=== PATIENT | male | born 1950 | race African-American/Black ===

== ENCOUNTER 2019-03-11 14:56 | Inpatient (IN) | payer MEDICARE, MEDICAID ==
--- NOTE | 2019-03-11 15:09 | CT ---
CT Brain WO Con: 03/11/2019 12:00 AM CLINICAL HISTORY: Stroke. COMPARISON: None. FINDINGS: Hemorrhage: None. Ventricular system: Normal in size and morphology for the patient's age. Cerebral parenchyma: Microvascular ischemic disease Midline shift: None. Mass: No mass effect. Calvarium: Normal. Visualized Paranasal sinuses: Scattered mild inflammatory mucosal thickening. IMPRESSION: No hemorrhage or mass effect. Results made available, 1506 hours.
[2019-03-11 15:28] LABS: #Basophils 0.1 thou/uL (0.0-0.2); #Eosinphils 0.3 thou/uL (0.0-0.7); #Lymphocytes 1.7 thou/uL (1.20-3.40); #Monocytes 0.9 thou/uL (0.11-0.59); #Neutrophils 13.1 thou/uL (1.40-6.50); %Basophils 0.4 % (0.0-1.0); %Eosinophils 1.8 % (0.0-10.0); %Lymphocytes 10.6 % (21.0-51.0); %Monocytes 5.3 % (0.0-10.0); Hemoglobin 14.5 g/dL (14.0-18.0); Mean Corpuscular Volume 93.7 fL (78.0-98.0); Mean Platelet Volume 8.4 fL (7.4-10.4); Platelet Count 267 thou/uL (130-400); RBC Distribution Width 14.4 % (11.5-14.5); Red Blood Cell (RBC) Count 4.83 mill/uL (4.70-6.10)
[2019-03-11 15:34] LABS: PTT 23.9 SEC (22.9-36.1); Prothrombin Time 12.7 SEC (12.0-14.7)
--- NOTE | 2019-03-11 15:38 | CT ---
CTA of the head/neck with IV contrast and 3-D reformatted imaging. 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 Right: CCA:Mild calcification without significant stenosis ICA:Mild to moderate localized stenosis related to peripherally oriented calcification of the right c arotid terminus, although difficult to reliably evaluated due to its tortuous, intracranial course. MCA:No significant stenosis. KAMRAN:No significant stenosis. PIPE WRAPPING MACHINE OPERATOR:No significant stenosis. LEFT: CCA:Mild calcified and noncalcified plaque, without high-grade stenosis ICA:Mild/moderate calcification of the left carotid terminus MCA:No significant stenosis. KAMRAN:No significant stenosis. PIPE WRAPPING MACHINE OPERATOR:No significant stenosis. Vertebrobasilar System: Left Vertebral:Mild calcification without significant stenosis Right Vertebral:Mild calcification at the origin, without significant stenosis Basilar:No significant stenosis. IMPRESSION: Scattered vascular disease, without hemodynamically significant stenosis, or occlusion. Incidental note of an ovoid, 9 mm nodular density of the subpleural of the visualized right upper onhemi g, nonspecific and incompletely assessed on the basis of this exam. Consider follow-up with CT thorax for further assessment. Notification of results provided at 1532 hours. Transcribed Date/Time: 03/11/2019 3:59 PM
[2019-03-11 15:39] LABS: ALT (SGPT) 22 U/L (8-55); AST (SGOT) 22 U/L (5-34); Albumin 3.9 g/dL (3.4-4.8); Alkaline Phosphatase 92 U/L (40-110); Anion Gap 18 mmol/L (10-20); BUN (Urea Nitrogen) 17 mg/dL (8.4-25.7); Bilirubin, Total 0.4 mg/dL (0.2-1.2); CK (CPK) 78 U/L (30-200); Calc. Creatinine Clearance 0 mL/min (70-130); Calcium 9.3 mg/dL (7.8-10.44); Carbon Dioxide 23 mmol/L (23-31); Chloride 104 mmol/L (98-107); Estimated GFR-MDRD 58; Globulin 3.4 g/dL (2.4-3.5); Glucose 95 mg/dL (80-115); Potassium 5.3 mmol/L (3.5-5.1); Protein, Total 7.3 g/dL (5.8-8.1); Sodium 140 mmol/L (136-145)
[2019-03-11] MEDS ORDERED: Aspirin 325 MG TAB ONE (15:58)
[2019-03-11] MEDS ORDERED: Ondansetron ODT 4 MG TAB PO PRN (16:41)
[2019-03-11] MEDS ORDERED: Ondansetron PF 4 MG/2 ML Vial IVP PRN (16:41)
[2019-03-11] MEDS ORDERED: Acetaminophen 650 MG Suppository PR PRN (16:41)
[2019-03-11] MEDS ORDERED: Dextrose 50% Abboject 50 ML SYRINGE SLOW IVP PRN (16:41)
[2019-03-11] MEDS ORDERED: Dextrose 5% in Water 1,000 ML IV PRN (16:41)
--- NOTE | 2019-03-11 16:41 | PDOC.FPRHP ---
- History of Present Illness Chief Complaint: Slurred Speech History of Present Illness: 68 you AA male with pmh of dementia, schizophrenia copd, DMII, HTN, HLD, and CAD presents to ER after snf staff were concerned for new onset slurred speech earlier this morning. Pt has underlying dementia. Pt A&Ox2 to person and date today but patient did not recall much of his medical history. Pt was unsure why he was at the ER. States that the girls sent him over. Per ER nurses who spoke with snf staff state that pt is usually pleasantly confused and talking with the staff. They stated that today they noticed his speech was slurred so sent him over with concern of stroke. - Allergies/Adverse Reactions Allergies Allergy/AdvReac Type Severity Reaction Status Date / Time tramadol Allergy Verified 03/12/19 00:17 - Home Medications Comments: Duoneb .5mg-3mg/3ml inhalation prn Anoro Ellipta 62.5 mcg-25mcg/actuation inhalation daily Bactrim DS started 03/08/19 and continue for 7 days BID Carvedilol 12.5 mg daily Claritin 10 mg daily Plavix 75 mg daily Donepezil 10 mg daily Finasterid 5 mg daily Fluticasone Propionate Nasal spray 50mcg/actuation 1 spray each nare daily Gabapentin 800 mg TID Guaifenesin 100mg/5ml Ivega 1.5 mg daily Lantus U100 insulin 15 u once daily at night Lasix 40 mg BID Lipitor 20 mg daily Lisinopril 20 mg daily Metformin 1000 mg BID Novolog 70-30 35u once daily Novolog U100 sliding scale Protonix 20 mg daily - History PMHx: CHF, DMII, Dementia/Schizophrenia, BPH, CAD, Diverticulosis, HTN, COPD, GERD, HLD PSHx: Heart surgery, possible pacemaker, Chest abscess drained 03/08/19 FHx: Father-Gout Social: Pt reports smoking currently, smoked for 30 years 1ppd, Denies any alcohol or illicit drug use. I spoke with Daughter who is MPOA and she stated that Father had stated he did not want interventions but she stated he was Full Code. - Review of Systems ROS unobtainable: due to mental status (Pt A&Ox2. Is reported to have underlying dementia) General: denies: fever/chills, weight/appetite/sleep changes, fatigue Eyes: denies: eye pain, vision changes ENT: denies: nasal congestion, rhinorrhea Respiratory: denies: cough, congestion, shortness of breath Cardiovascular: denies: chest pain, palpitation, edema, paroxysmal nocturnal dyspnea Gastrointestinal: denies: nausea, vomiting, diarrhea, constipation, abdominal pain Genitourinary: denies: incontinence, dysuria Skin: denies: rashes, lesions Neurological: reports: weakness. denies: numbness, syncope, seizure Psychological: denies: anxiety, depression - Vital signs BP: [175/96] HR: [66] RR: [18] Tmax: [98.2] Pox: [100]% on [1L] Wt: [112kg] - Physical Exam Constitutional: NAD, well developed -Constitutional: Alert and oriented to person and date. Not oriented to place HEENT: normocephalic and atraumatic, grossly normal hearing, normal nasal mucosa , MMM Neck: supple, trachea midline, no LAD, no JVD Heart: RRR, normal S1/S2, no murmurs/rubs/gallops, pulses present, no edema Lungs: CTAB, no respiratory distress, good air movement, no rales/rhonchi, no wheezing, no retractions Abdomen: soft, non-tender, bowel sounds present, no hernias -Abdomen: Moderately distended. -Musculoskeletal: Pt is unable to lift R. arm on command. Pt needs to assist in lifting it. Strength is 4/5 in R arm. Strenght 5/5 in all other extremities. Neurological: normal sensation, DTRs 2+ -Neurological: Pt has mild left sided facial droop. Pt speech is slurred and hard to understand. Pt Right eye does not track well with lateral movements. pt has normal sensation. pt is unable to move R. arm with command. Pt unable to lift arm without assitance. Strenght decreased in Right arm. Finger to Nose test pt has mild tremor and does not accurately track. Heel to santos normal. Skin: capillary refill <2 seconds -Skin: pt has area on left chest covered and dressed. Pt recently had abscess drained 03/08 and started on abx. Psychiatric: normal mood and affect -Psychiatric: Alert and oriented x2 to person and place. Pt not able to give the most accurate history. FMR H&P: Results - Labs Result Diagrams: 03/11/19 15:18 03/11/19 15:18 Lab results: WBC 16.0 thou/uL (4.8-10.8) H 03/11/19 15:18 Hgb 14.5 g/dL (14.0-18.0) 03/11/19 15:18 Hct 45.2 % (42.0-52.0) 03/11/19 15:18 MCV 93.7 fL (78.0-98.0) 03/11/19 15:18 Plt Count 267 thou/uL (130-400) 03/11/19 15:18 Neutrophils % 82.0 % (42.0-75.0) H 03/11/19 15:18 Sodium 140 mmol/L (136-145) 03/11/19 15:18 Potassium 5.3 mmol/L (3.5-5.1) H 03/11/19 15:18 Chloride 104 mmol/L (98-107) 03/11/19 15:18 Carbon Dioxide 23 mmol/L (23-31) 03/11/19 15:18 BUN 17 mg/dL (8.4-25.7) 03/11/19 15:18 Creatinine 1.47 mg/dL (0.7-1.3) H 03/11/19 15:18 Glucose 95 mg/dL (80-115) 03/11/19 15:18 Calcium 9.3 mg/dL (7.8-10.44) 03/11/19 15:18 Total Bilirubin 0.4 mg/dL (0.2-1.2) 03/11/19 15:18 AST 22 U/L (5-34) 03/11/19 15:18 ALT 22 U/L (8-55) 03/11/19 15:18 Alkaline Phosphatase 92 U/L (40-110) 03/11/19 15:18 Creatine Kinase 78 U/L (30-200) 03/11/19 15:18 Serum Total Protein 7.3 g/dL (5.8-8.1) 03/11/19 15:18 Albumin 3.9 g/dL (3.4-4.8) 03/11/19 15:18 - EKG Interpretation EKG: LVH, No sign of acute infarct. No significant T wave abnormalities. - Radiology Interpretation CT scan - head Status: image reviewed by me, report reviewed by me (Negative) Other Status: image reviewed by me, report reviewed by me (CTA HEAd- Scattered vascular dz, w/o hemodynamically sig stenosis or occlusion. Incidental note of an ovoid, 9 mm nodular density of the subpleural of the visualized right upper lung. Nonspecific and incompletely assessed on this exam. Reccomend f/u.) FMR H&P: A/P - Problem List (1) Stroke Current Visit: Yes Status: Acute Code(s): I63.9 - CEREBRAL INFARCTION, UNSPECIFIED (2) COPD (chronic obstructive pulmonary disease) Current Visit: Yes Status: Acute (3) CHF (congestive heart failure) Current Visit: Yes Status: Acute Code(s): I50.9 - HEART FAILURE, UNSPECIFIED (4) CAD (coronary artery disease) Current Visit: Yes Status: Acute Code(s): I25.10 - ATHSCL HEART DISEASE OF [place] CORONARY ARTERY W/O ANG PCTRS (5) HTN (hypertension) Current Visit: Yes Status: Acute Code(s): I10 - ESSENTIAL (PRIMARY) HYPERTENSION (6) HLD (hyperlipidemia) Current Visit: Yes Status: Acute Code(s): E78.5 - HYPERLIPIDEMIA, UNSPECIFIED (7) ALICE (obstructive sleep apnea) Current Visit: Yes Status: Acute Code(s): G47.33 - OBSTRUCTIVE SLEEP APNEA ( ADULT) (PEDIATRIC) (8) Diverticulosis Current Visit: Yes Status: Acute Code(s): K57.90 - DVRTCLOS OF INTEST, PART UNSP, W/O PERF OR ABSCESS W/O BLEED (9) GERD (gastroesophageal reflux disease) Current Visit: Yes Status: Acute Code(s): K21.9 - GASTRO-ESOPHAGEAL REFLUX DISEASE WITHOUT ESOPHAGITIS (10) BPH (benign prostatic hyperplasia) Current Visit: Yes Status: Acute Code(s): N40.0 - BENIGN PROSTATIC HYPERPLASIA WITHOUT LOWER URINRY TRACT SYMP - Plan CVA -Pt has left side facial droop, with noted slurred speech. He also is unable to move arm upon command. Strength is decreased in R. Arm. -CT Head neg. CTA head/neck neg -Will order MRI -Consulted speech/PT/OT and will follow recs -Will consult Nerurology -Continue ASA and Plavix even though unsure what he is on plavix for at this time. Increased Statin to high dose. -Admit to stroke unit with stroke team evaluation -Allow for permissive HTN at this time for 24 hrs CHF -Pt possibly has poor ER per daughter -continued home lasix dose -Will get ECHO. -Pt possibly has pacemaker or AICD. COPD -Equivalent of pt home inhaler is Duonebs Q6hrs -Duonebs prn as needed HTN -Held home meds. Allow for permissive htn. DMII -Continued lantus 15 u PM. -Held home Novolog insulin. Mild SSI. -Accuchecks ACHS HLD -Increased dose of Atorvastatin to high dose. -FLP pending Dementia -Held home medication at this time Schizophrenia -Invega home med not on formulary. Will order to be sent in BPH -held home medication GERD -Protonix DVT Ppx -Lovenox Dispo: Admit to Stroke unit. Cont tele monitoring. MRI ordered. PT/OT/Speech consulted. Neurology consulted. Will await results and recs. Addendum - Attending - Attending Attestation Date/Time: 03/12/19 0686 I personally evaluated the patient and discussed the management with Dr. Bach at time of admission. I agree with the History, Examination, Assessment and Plan documented above with any addition or exceptions noted below. His facial droop and slurred speech were resovled at the time of my exam. Also his right sided weakness was improved to a strength of 4/5.
[2019-03-11] MEDS ORDERED: Enoxaparin Sodium 40 MG/0.4 ML SYRINGE SC SCH (16:45)
[2019-03-11] MEDS ORDERED: Nitroglycerin 2% Ointment 1 INCH/1 GM Packet ONE (17:05)
[2019-03-11] MEDS ORDERED: hydrALAZINE 20 MG/ML VIAL SLOW IVP PRN (18:06)
[2019-03-11] MEDS ORDERED: Famotidine/PF 20 mg/2ml Vial SLOW IVP SCH (21:00)
[2019-03-11] MEDS: Atorvastatin Calcium 40 MG TAB PO SCH (22:20)
[2019-03-11] MEDS: Sulfameth/Trimethoprim DS 800-160mg TAB PO SCH (22:20)
[2019-03-11] MEDS: Insulin Glargine 15 UNITS in Pre-Filled Syringe SC SCH (22:28)
[2019-03-12 05:20] LABS: #Basophils 0.1 thou/uL (0.0-0.2); #Eosinphils 0.3 thou/uL (0.0-0.7); #Lymphocytes 2.1 thou/uL (1.20-3.40); #Neutrophils 8.2 thou/uL (1.40-6.50); %Basophils 0.8 % (0.0-1.0); %Eosinophils 2.7 % (0.0-10.0); %Monocytes 8.4 % (0.0-10.0); Hemoglobin 12.8 g/dL (14.0-18.0); Mean Corpuscular HGB CONC 32.5 g/dL (32.0-36.0); Mean Corpuscular Hemoglobin 30.4 pg (27.0-31.0); Mean Corpuscular Volume 93.5 fL (78.0-98.0); Mean Platelet Volume 8.6 fL (7.4-10.4); Platelet Count 258 thou/uL (130-400); RBC Distribution Width 14.4 % (11.5-14.5); White Blood Cell (WBC) Count 11.7 thou/uL (4.8-10.8)
--- NOTE | 2019-03-12 05:34 | PDOC.FM ---
- Subjective Subjective: He has been sleeping and eating well. He says he feels anxious this morning. He complains of pain at IV site in R hand. - Objective MAR Reviewed: Yes Vital Signs & Weight: Vital Signs (12 hours) Temp Pulse Resp BP Pulse Ox 03/12/19 04:07 97.9 F 75 20 146/73 H 94 L 03/11/19 23:51 97.6 F 82 18 127/79 95 03/11/19 21:56 71 16 96 03/11/19 19:35 97.9 F 70 20 167/82 H 95 Weight Weight 109.633 kg Result Diagrams: 03/12/19 04:50 03/12/19 04:50 Phys Exam - Physical Examination Constitutional: NAD HEENT: PERRLA, moist MMs, sclera anicteric Neck: supple, full ROM Respiratory: clear to auscultation bilateral Cardiovascular: RRR, no significant murmur Gastrointestinal: soft, non-tender, positive bowel sounds Musculoskeletal: no edema, pulses present Neurological: moves all 4 limbs Deviation from normal: anxious affect Deviation from normal: Abscess of L nipple Dx/Plan (1) BPH (benign prostatic hyperplasia) Code(s): N40.0 - BENIGN PROSTATIC HYPERPLASIA WITHOUT LOWER URINRY TRACT SYMP Status: Acute (2) CHF (congestive heart failure) Code(s): I50.9 - HEART FAILURE, UNSPECIFIED Status: Acute (3) COPD (chronic obstructive pulmonary disease) Status: Acute (4) Diverticulosis Code(s): K57.90 - DVRTCLOS OF INTEST, PART UNSP, W/O PERF OR ABSCESS W/O BLEED Status: Acute (5) GERD (gastroesophageal reflux disease) Code(s): K21.9 - GASTRO-ESOPHAGEAL REFLUX DISEASE WITHOUT ESOPHAGITIS Status: Acute (6) HLD (hyperlipidemia) Code(s): E78.5 - HYPERLIPIDEMIA, UNSPECIFIED Status: Acute (7) HTN (hypertension) Code(s): I10 - ESSENTIAL (PRIMARY) HYPERTENSION Status: Acute (8) ALICE (obstructive sleep apnea) Code(s): G47.33 - OBSTRUCTIVE SLEEP APNEA (ADULT) (PEDIATRIC) Status: Acute (9) Stroke Code(s): I63.9 - CEREBRAL INFARCTION, UNSPECIFIED Status: Acute - Plan Plan: 68 you AA male with pmh of dementia, schizophrenia copd, DMII, HTN, HLD, and CAD presents to ER after long term staff were concerned for new onset slurred speech earlier this morning. 1. CVA * Pt has left side facial droop, with noted slurred speech. He also is unable to move arm upon command. Strength is decreased in R. Arm. * CT Head: Neg * CTA head/neck: Scattered vascular disease, without hemodynamically significant stenosis or occlusion * Ovoid 9mm nodular density of the sub-pleura RUL of lung. Consider f/u CT * MRI: pending * Consulted speech/PT/OT and will follow recs * Consulted Nerurology, appreciate recs. * Continue ASA and Plavix even though unsure what he is on plavix for at this time. Increased Statin to high dose. * Admit to stroke unit with stroke team evaluation * Allow for permissive HTN at this time for 24 hrs * NIH: 4 2. Abscess of L Nipple Abscess has drain in place currently * WBC: 16 on admission > 11.7 * Currently on Bactrim DS 1 tab BID * Consulted Wound Care 3. CHF Pt possibly has poor ER per daughter * Continued home lasix dose * Will get ECHO. * Pt possibly has pacemaker or AICD. 4. COPD * Equivalent of pt home inhaler is Duonebs Q6hrs * Duonebs prn as needed 5. HTN * Held home meds * Allow for permissive HTN 6. DMII * Continued lantus 15 u PM * Held home Novolog insulin. Mild SSI * Accuchecks ACHS 7. HLD * Atorvastatin 40 * FLP: pending 8. Dementia * Held home medication at this time 9. Schizophrenia * Invega home med not on formulary * Will order to be sent in 10. BPH * Held home medication 11. GERD * Started Protonix Code Status: Full Diet: HH DVT PPx: Lovenox GI PPx: Protonix PCP: CC Dispo: Stroke Inpt, will monitor on tele, get MRI, and await results and recs from Neuro, as well as PT/OT/Speech. Addendum - Attending - Attending Attestation Date/Time: 03/12/19 1023 I personally evaluated the patient and discussed the management with Dr. Townsend. I agree with the History, Examination, Assessment and Plan documented above with any addition or exceptions noted below. The patient is sitting on the side of the bed. He states he is doing well. The patient will have MRI. Will give ativan prior to imaging to help with his anxiety. Neuro is consulted. If MRI negative, may be able to discharge.
[2019-03-12 05:44] LABS: ALT (SGPT) 16 U/L (8-55); AST (SGOT) 14 U/L (5-34); Albumin 3.2 g/dL (3.4-4.8); Alkaline Phosphatase 78 U/L (40-110); Anion Gap 13 mmol/L (10-20); BUN (Urea Nitrogen) 17 mg/dL (8.4-25.7); Bilirubin, Total 0.4 mg/dL (0.2-1.2); Calc. Creatinine Clearance 88 mL/min (70-130); Calcium 8.9 mg/dL (7.8-10.44); Carbon Dioxide 27 mmol/L (23-31); Chloride 102 mmol/L (98-107); Cholesterol 108 mg/dl (< 200 Desired); Estimated GFR-MDRD 71; Globulin 3.1 g/dL (2.4-3.5); Glucose 298 mg/dL (80-115); HDL Cholesterol 27 mg/dL (>60 Neg Risk); LDL Cholesterol, Calculated 51 mg/dL; Potassium 4.2 mmol/L (3.5-5.1); Protein, Total 6.3 g/dL (5.8-8.1); Sodium 138 mmol/L (136-145); Triglycerides 148 mg/dL (Less than 150)
[2019-03-12] MEDS: HumaLOG 300 UNITS/3 ML VIAL SC PRN ×3 (06:26→17:52)
[2019-03-12] MEDS ORDERED: Pantoprazole 40 MG VIAL IVP SCH (09:00)
[2019-03-12] MEDS: Furosemide 40 MG TAB PO SCH ×2 (09:17→14:54)
[2019-03-12] MEDS: Sulfameth/Trimethoprim DS 800-160mg TAB PO SCH ×2 (09:17→22:24)
[2019-03-12] MEDS: Aspirin 81 mg Enteric Coated Tablet PO SCH (09:17)
[2019-03-12] MEDS: Enoxaparin Sodium 40 MG/0.4 ML SYRINGE SC SCH (09:18)
[2019-03-12] MEDS ORDERED: Lorazepam 2 MG/ML VIAL SLOW IVP PRN (09:18)
--- NOTE | 2019-03-12 12:14 | CON ---
DATE OF TELEMEDICINE CONSULTATION: 03/12/2019 CHIEF COMPLAINT: Dysarthria. HISTORY OF PRESENT ILLNESS: The patient gave partial history. He stated that they thought he had a stroke. The patient is a 68-year-old man with previous medical history of dementia, schizophrenia, COPD, diabetes, hypertension, hyperlipidemia , and coronary artery disease. He was brought to the hospital by the half-way staff with a history of new onset slurred speech and the patient also repeated this history and he felt he is much better and is back to normal. Per ER note, the patient is usually pleasantly confused per chart. There is no weakness noted. PREVIOUS MEDICAL HISTORY: As noted, COPD, diabetes, hypertension, hyperlipidemia, coronary artery disease. ALLERGIES: TRAMADOL. MEDICATIONS: At home noted the patient is on Plavix at the half-way. PAST SURGICAL HISTORY: The patient had a cardiac pacemaker plus cardiac surgery and chest abscess drainage in the past. FAMILY HISTORY: The patient reports he has two sets of parents, but his biological father at 60, mother in her 80s, she had strokes. Father also had gout. SOCIAL HISTORY: He smokes half pack between 11:00 a.m. to 8:00 p.m., sometimes drinks wine. Lives in a half-way. REVIEW OF SYSTEMS: Difficult to confirm due to mental status changes, but pulmonary negative for cough or shortness of breath. GI: Negative for nausea, vomiting, or diarrhea. DERMATOLOGIC: Negative for any active rash. OPHTHALMOLOGIC: Negative for vision changes. HEMATOLOGIC: Negative for any bleeding or diathesis. NEUROLOGIC: Positive for dysarthria. LABORATORY DATA: His current workup; white count 11.7, hemoglobin 12.8, hematocrit 39.2, platelet count 258. Sodium 138, potassium 4.2, chloride 102, BUN is 17, creatinine 1.23, glucose 298. Lipid profile is within normal limits. Liver functions are also within normal limits. Coagulation; PT and INR are within normal limits. PHYSICAL EXAMINATION: GENERAL APPEARANCE: Well-built, well-nourished man, who is comfortable in bed. He has mild involuntary movements of his face and no dysarthria was noted. CHEST: Clear vesicular breathing. CARDIOVASCULAR: S1, S2 heard. No murmurs. ABDOMEN: Soft. NEUROLOGIC: Higher intellectual functions; normal orientation to time, place, and person. Appropriate conversation and cranial nerves 2 through 12 normal. Pupils are 1 mm, reactive to light. Tongue midline. No atrophy noted. No facial asymmetry noted. Normal sensation of face. Normal elevation of palate bilaterally. Normal hearing to finger rub bilaterally. Motor examination, bulk normal. Tone normal. Strength 5/5 throughout in upper and lower extremities. Deep tendon reflexes 1+ in upper extremity, in the lower extremity 0+ reflexes. Cerebellar; normal [id number] and [id number] and sensory was normal to touch bilaterally. IMPRESSION: The patient with likely transient ischemic attack with dysarthria. His current examination is quite normal except for mild involuntary movements of his face and tongue. I reviewed his CAT scan results which were negative and CT angiography is negative for any kind of stenotic vessels and he is pending echocardiogram and carotid Doppler. Please complete those studies. RECOMMENDATIONS: Please add aspirin 81 mg to his treatment regimen to prevent future CVAs and I will follow up with the patient in the morning. Job ID: [id number] MTDD
[2019-03-12] MEDS ORDERED: hydrALAZINE 10 MG TAB PO PRN (21:32)
[2019-03-12] MEDS: Insulin Glargine 15 UNITS in Pre-Filled Syringe SC SCH (22:24)
[2019-03-12] MEDS: Atorvastatin Calcium 40 MG TAB PO SCH (22:24)
[2019-03-13] MEDS: HumaLOG 300 UNITS/3 ML VIAL SC PRN ×4 (01:33→18:24)
--- NOTE | 2019-03-13 06:33 | PDOC.FM ---
- Subjective Subjective: He has no complaints. He slept well last night and is eating well. - Objective MAR Reviewed: Yes Vital Signs & Weight: Vital Signs (12 hours) Temp Pulse Resp BP BP Pulse Ox 03/13/19 04:00 97.3 F L 76 16 144/77 H 95 03/12/19 23:39 72 16 95 03/12/19 23:36 97.2 F L 74 20 167/83 H 95 03/12/19 20:08 97.4 F L 76 20 191/84 H 94 L 03/12/19 18:35 69 16 94 L Weight Weight 109.089 kg Result Diagrams: 03/12/19 04:50 03/12/19 04:50 Phys Exam - Physical Examination Constitutional: NAD HEENT: PERRLA, moist MMs Neck: supple, full ROM Respiratory: clear to auscultation bilateral Cardiovascular: RRR, no significant murmur Gastrointestinal: soft, non-tender, positive bowel sounds Musculoskeletal: no edema, pulses present Neurological: moves all 4 limbs LE: 5/5 fidelia, UE: R-4/5, L-5/5 Psychiatric: normal affect, A&O x 3 Skin: no rash Dx/Plan (1) BPH (benign prostatic hyperplasia) Code(s): N40.0 - BENIGN PROSTATIC HYPERPLASIA WITHOUT LOWER URINRY TRACT SYMP Status: Acute (2) CHF (congestive heart failure) Code(s): I50.9 - HEART FAILURE, UNSPECIFIED Status: Acute (3) COPD (chronic obstructive pulmonary disease) Status: Acute (4) Diverticulosis Code(s): K57.90 - DVRTCLOS OF INTEST, PART UNSP, W/O PERF OR ABSCESS W/O BLEED Status: Acute (5) GERD (gastroesophageal reflux disease) Code(s): K21.9 - GASTRO-ESOPHAGEAL REFLUX DISEASE WITHOUT ESOPHAGITIS Status: Acute (6) HLD (hyperlipidemia) Code(s): E78.5 - HYPERLIPIDEMIA, UNSPECIFIED Status: Acute (7) HTN (hypertension) Code(s): I10 - ESSENTIAL (PRIMARY) HYPERTENSION Status: Acute (8) ALICE (obstructive sleep apnea) Code(s): G47.33 - OBSTRUCTIVE SLEEP APNEA (ADULT) (PEDIATRIC) Status: Acute (9) Stroke Code(s): I63.9 - CEREBRAL INFARCTION, UNSPECIFIED Status: Acute - Plan Plan: 68 you AA male with pmh of dementia, schizophrenia copd, DMII, HTN, HLD, and CAD presents to ER after correction staff were concerned for new onset slurred speech earlier this morning. 1. CVA * Pt has left side facial droop, with noted slurred speech. He also is unable to move arm upon command. Strength is decreased in R. Arm. * CT Head: Neg * CTA head/neck: Scattered vascular disease, without hemodynamically significant stenosis or occlusion * Ovoid 9mm nodular density of the sub-pleura RUL of lung. Consider f/u CT * MRI: pending * Consulted speech/PT/OT and will follow recs * Consulted Nerurology, appreciate recs. * Ordered Carotid Dopplers * Continue ASA and Plavix even though unsure what he is on plavix for at this time. Increased Statin to high dose. * Admit to stroke unit with stroke team evaluation * Allow for permissive HTN at this time for 24 hrs * NIH: 4 2. Abscess of L Nipple Abscess has drain in place currently * WBC: 16 on admission > 11.7 * Currently on Bactrim DS 1 tab BID * Consulted Wound Care 3. CHF Pt possibly has poor ER per daughter * Continued home lasix dose * ECHO: pending * Pt possibly has pacemaker or AICD. 4. COPD * Equivalent of pt home inhaler is Duonebs Q6hrs * Duonebs prn as needed 5. HTN * Held home meds, will restart today * Allowed for permissive HTN 6. DMII * Continued lantus 15 u PM * Held home Novolog insulin. Mild SSI * Accuchecks ACHS 7. HLD * Atorvastatin 40 * FLP: pending 8. Dementia * Held home medication at this time 9. Schizophrenia * Invega home med not on formulary * Will order to be sent in 10. BPH * Held home medication 11. GERD * Started Protonix Code Status: Full Diet: HH DVT PPx: Lovenox GI PPx: Protonix PCP: [facility] Dispo: Stroke Inpt, will monitor on tele, get MRI, ECHO, Carotid Dopplers, and await results and recs from Neuro, as well as PT/OT/Speech. Addendum - Attending - Attending Attestation Date/Time: 03/13/19 1005 I personally evaluated the patient and discussed the management with Dr. Townsend. I agree with the History, Examination, Assessment and Plan documented above with any addition or exceptions noted below. The patient's insulin is being restarted. He is scheduled for mri and carotid doppler today. Will f/u with neuro recs after imaging. Pt is doing well with therapy.
[2019-03-13] MEDS ORDERED: Lorazepam 2 MG/ML VIAL IM PRN (08:27)
[2019-03-13] MEDS ORDERED: Artificial Tear Sol 15 ML BOT EA EYE PRN (08:32)
[2019-03-13] MEDS ORDERED: Diabetic Tussin 200 MG/10 ML UDCUP PO PRN (08:32)
[2019-03-13] MEDS ORDERED: Loratadine 10 MG TAB PO PRN (08:32)
[2019-03-13] MEDS: Furosemide 40 MG TAB PO SCH ×4 (10:15→21:56)
[2019-03-13] MEDS: Gabapentin 400 MG CAP PO SCH ×3 (10:15→21:56)
[2019-03-13] MEDS: Aspirin 81 mg Enteric Coated Tablet PO SCH (10:15)
[2019-03-13] MEDS: Sulfameth/Trimethoprim DS 800-160mg TAB PO SCH ×2 (10:15→21:58)
[2019-03-13] MEDS: Clopidogrel Bisulfate 75 MG TAB PO SCH (10:15)
[2019-03-13] MEDS: Carvedilol 6.25 MG TAB PO SCH ×2 (10:16→22:00)
[2019-03-13] MEDS: Enoxaparin Sodium 40 MG/0.4 ML SYRINGE SC SCH (10:16)
[2019-03-13 14:27] VITALS: BMI 30.9
[2019-03-13] MEDS: Mometasone Furoate 120 PUFF 220 MCG INH SCH (19:04)
--- NOTE | 2019-03-13 20:24 | ULT ---
BILATERAL CAROTID DUPLEX ULTRASOUND: HISTORY: Slurred speech. Patient found unresponsive on March 11, 2019. TECHNIQUE: Grayscale, color-flow and spectral Doppler ultrasound imaging of the extracranial carotid artery syst ems was performed bilaterally. FINDINGS: Mild atherosclerotic plaque is seen in the left common carotid artery. There is generalized diminished peak systolic velocities in the internal carotid arteries bilaterally ; although, the velocity measurements are overall symmetrical. There is no hemodynamically significant stenosis in the bilateral internal carotid arteries according to the peak systolic veloci ties and the ICA/CCA ratios. The peak systolic velocity in the right ICA measures 25.3 cm/s. The peak systolic velocity in the left ICA measures 39.7 cm/s. The right ICA/CCA ratio is 0.46, and the left ICA/CCA ratio is 0.56. No significant stenosis was seen in the bilateral common carotid arteries or internal carotid arteries on recent CTA of the neck on 03/11/2019. Vertebral arteries: Antegrade flow is demonstrated in the vertebral arteries bilaterally. IMPRESSION: No hemodynamically significant stenosis in the bilateral internal carotid arteries.
[2019-03-13] MEDS: Atorvastatin Calcium 40 MG TAB PO SCH (21:56)
[2019-03-13] MEDS: Insulin Glargine 15 UNITS in Pre-Filled Syringe SC SCH (21:58)
[2019-03-13] MEDS: Donepezil HCl 10 MG TAB PO SCH (21:58)
[2019-03-14] MEDS: HumaLOG 300 UNITS/3 ML VIAL SC PRN ×4 (02:54→17:02)
--- NOTE | 2019-03-14 05:37 | PDOC.FM ---
- Subjective Subjective: Pt awake and alert in bed. C/O involuntary movements. No acute overnight events. Tele monitoring: SR with elevated ST segments. rate 60-70's. Denies CP. - Objective MAR Reviewed: Yes Vital Signs & Weight: Vital Signs (12 hours) Temp Pulse Resp BP BP BP Pulse Ox 03/14/19 04:00 97.5 F L 69 16 165/62 H 96 03/14/19 00:50 75 18 96 03/14/19 00:00 97.3 F L 66 16 164/78 H 96 03/13/19 22:00 161/90 H 03/13/19 21:15 97.4 F L 75 18 119/92 H 96 03/13/19 20:00 98 03/13/19 19:03 72 16 94 L Weight Admit Weight 64.274 kg Weight 109.089 kg I&O: 03/12/19 03/13/19 03/14/19 06:59 06:59 06:59 Intake Total 775 Output Total 0 400 Balance 0 375 Result Diagrams: 03/12/19 04:50 03/12/19 04:50 Phys Exam - Physical Examination Constitutional: NAD HEENT: moist MMs pinpoint pupils, sluggish reactivity Neck: no nodes, no JVD Respiratory: no wheezing, no rales, no rhonchi, clear to auscultation bilateral Cardiovascular: RRR, no significant murmur Gastrointestinal: soft, non-tender, no distention CN 2-12 grossly intact. Involuntary jerking movements of upperextremities. Skin: no rash, normal turgor Dx/Plan (1) TIA (transient ischemic attack) Code(s): G45.9 - TRANSIENT CEREBRAL ISCHEMIC ATTACK, UNSPECIFIED Status: Acute (2) BPH (benign prostatic hyperplasia) Code(s): N40.0 - BENIGN PROSTATIC HYPERPLASIA WITHOUT LOWER URINRY TRACT SYMP Status: Chronic (3) CAD (coronary artery disease) Code(s): I25.10 - ATHSCL HEART DISEASE OF [place] CORONARY ARTERY W/O ANG PCTRS Status: Chronic (4) CHF (congestive heart failure) Code(s): I50.9 - HEART FAILURE, UNSPECIFIED Status: Chronic (5) COPD (chronic obstructive pulmonary disease) Status: Chronic (6) GERD (gastroesophageal reflux disease) Code(s): K21.9 - GASTRO-ESOPHAGEAL REFLUX DISEASE WITHOUT ESOPHAGITIS Status: Chronic (7) HLD (hyperlipidemia) Code(s): E78.5 - HYPERLIPIDEMIA, UNSPECIFIED Status: Chronic (8) HTN (hypertension) Code(s): I10 - ESSENTIAL (PRIMARY) HYPERTENSION Status: Chronic (9) Acute abscess of areola Code(s): N61.1 - ABSCESS OF THE BREAST AND NIPPLE Status: Acute - Plan Plan: 68 you AA male with pmh of dementia, schizophrenia, copd, DMII, HTN, HLD, and CAD presents to ER after correction staff were concerned for new onset slurred speech earlier this morning. 1. CVA * Pt has left side facial droop, with noted slurred speech. He also is unable to move arm upon command. Strength is decreased in R. Arm. * CT Head: Neg * CTA head/neck: Scattered vascular disease, without hemodynamically significant stenosis or occlusion * Ovoid 9mm nodular density of the sub-pleura RUL of lung. Consider f/u CT * MRI: pending * Consulted speech/PT/OT and will follow recs * Consulted Nerurology, appreciate recs. * Ordered Carotid Dopplers: no significant stenosis of B internal carotid arteries. * Continue ASA and Plavix even though unsure what he is on plavix for at this time. Increased Statin to high dose. * Admitted to stroke unit with stroke team evaluation * Permissive HTN allowed for 24 hrs upon admission. * NIH: 4 2. Abscess of L Nipple Abscess has drain in place currently * WBC: 16 on admission > 11.7 * Currently on Bactrim DS 1 tab BID * Consulted Wound Care 3. CHF Pt possibly has poor EF per daughter * Continued home lasix dose * ECHO: EF 25-30%, E/S flow reversal. LA mildly dilated. AICD. * AICD interrogation pending. 4. COPD * Equivalent of pt home inhaler is Duonebs Q6hrs * Duonebs prn 5. HTN * restarted home BP meds * Allowed for permissive HTN for first 24 hours. 6. DMII * Continued lantus 15 u PM * Held home Novolog insulin. Changed to Mod SSI * Accuchecks ACHS 7. HLD * Atorvastatin 40 * FLP: Tri 148, T chol 108, LDL 51, HDL 27 8. Dementia * Held home medication at this time 9. Schizophrenia * Invega home med not on formulary * Will order to be sent in 10. BPH * Held home medication 11. GERD * Started Protonix Code Status: Full Diet: HH DVT PPx: Lovenox GI PPx: Protonix PCP: LUIS Dispo: Stroke Inpt, will monitor on tele, ECHO and Carotid Dopplers neg, MRI pending. Addendum - Attending - Attending Attestation Date/Time: 03/14/19 1023 I personally evaluated the patient and discussed the management with Dr. Pineda. I agree with the History, Examination, Assessment and Plan documented above with any addition or exceptions noted below. Carotid doppler with no significant stenosis. Scheduled for MRI today. If negative, is stable for discharge.
[2019-03-14] MEDS: Carvedilol 6.25 MG TAB PO SCH ×2 (08:33→20:44)
[2019-03-14] MEDS: Gabapentin 400 MG CAP PO SCH ×3 (08:33→20:43)
[2019-03-14] MEDS: Aspirin 81 mg Enteric Coated Tablet PO SCH (08:33)
[2019-03-14] MEDS: Enoxaparin Sodium 40 MG/0.4 ML SYRINGE SC SCH (08:34)
[2019-03-14] MEDS: metFORMIN 500 MG TAB PO SCH ×2 (08:34→16:28)
[2019-03-14] MEDS: Sulfameth/Trimethoprim DS 800-160mg TAB PO SCH ×2 (08:34→20:43)
[2019-03-14] MEDS: Furosemide 40 MG TAB PO SCH ×2 (08:34→20:44)
[2019-03-14] MEDS: Clopidogrel Bisulfate 75 MG TAB PO SCH (08:34)
[2019-03-14] MEDS ORDERED: PALIPERIDONE 1.5 MG PO SCH (09:00)
--- NOTE | 2019-03-14 15:12 | PQF ---
CLINICAL DOCUMENTATION IMPROVEMENT CLARIFICATION FORM: ICD-10 Updated PLEASE DO AN ADDENDUM TO THE PROGRESS NOTE WITH ANY DOCUMENTATION UPDATES OR ADDITIONS AND CARRY THROUGH TO DC SUMMARY. THANK YOU. DATE: 03/14/2019 ATTN: Dr. Pineda/ Attending Dr. Carmona Please exercise your independent, professional judgment in responding to the clarification form. Clinical indicators are provided on the bottom of this form for your review Please check appropriate box(s): HEART FAILURE: A. ACUITY [ * ] Acute [ ] Acute on Chronic [ ] Chronic B. TYPE [ * ] Systolic / HFrEF [ ] Diastolic / HFpEF [ ] Combined Systolic / Diastolic [ ] Other diagnosis [ ] Unable to determine In addition, please specify: Present on Admission (POA): [ * ] Yes [ ] No [ ] Unable to determine For continuity of documentation, please document condition throughout progress notes and discharge summary. Thank You. CLINICAL INDICATORS - SIGNS / SYMPTOMS / LABS / RESULTS AND LOCATION IN EMR H&P 03/11: Problem list: CHF (congestive heart failure) Status: Acute PN 03/14/19: CHF - ECHO: EF 25-30%, E/S flow reversal. LA mildly dilated RISKS: 03/12 (Elias) Hx COPD, HTN, CAD. The pt had a cardiac pacemaker plus cardiac surgery and chest abscess drainage in the past. TREATMENT: Order 03/11: ECHO MAR: 03/13 Lasix 40 mg po bid MAR: 03/13 Coreg 12.5 mg po BID Thank you, Dayana (This form is maintained as a part of the permanent medical record) 2014 [employer]. All Rights Reserved Dayana Moody RN, BSN [email or web address] Office: [phone] [facility]
--- NOTE | 2019-03-14 15:45 | MRI ---
Exam: Brain MRI without contrast HISTORY: Evaluate for stroke. COMPARISON: None FINDINGS: Limited evaluation due to motion degradation on multiple sequences Calvarial marrow signal intensity: Appropriate T1 signal. Nonspecific T1 hypointensity external to th e calvarium, near to the left of midline is nonspecific. Correlation made with CT suggested possible small lipomatous lesion. Gradient echo sequence: No hemorrhage Brain parenchyma: No mass, mass effect or midline shift. Age-appropriate atrophy. Cortical yang-white matter differentiation: Preserved Restricted diffusion: Central arterial flow voids are maintained. Small focus of restricted diffusion in the medial right frontal lobe. Minimal associated mass effect and right to left subfalcine herniation. White matter signal intensities:Confluent T2, FLAIR white matter hyperintensities due to chronic smal l vessel ischemic changes Sinuses: Adequate aeration of the paranasal sinuses. Partial opacification of the right mastoid air c ells. IMPRESSION: 1. Small focus of restricted diffusion along the medial aspect of the right frontal lobe, compatible with a KAMRAN distribution infarct. Associated mass effect and minimal right to left subfalcine herniation 2. Confluent T2 and FLAIR white matter hyperintensities due to chronic small vessel ischemic changes. 2. Partial right mastoid air cell opacification.
[2019-03-14] MEDS: Mometasone Furoate 120 PUFF 220 MCG INH SCH (19:10)
[2019-03-14] MEDS: Atorvastatin Calcium 40 MG TAB PO SCH (20:43)
[2019-03-14] MEDS: Donepezil HCl 10 MG TAB PO SCH (20:43)
[2019-03-14] MEDS: Insulin Glargine 15 UNITS in Pre-Filled Syringe SC SCH (20:44)
[2019-03-15] MEDS: HumaLOG 300 UNITS/3 ML VIAL SC PRN ×2 (06:11→12:03)
[2019-03-15] MEDS: Acetaminophen 325 MG TAB PO PRN ×2 (06:17→12:02)
--- NOTE | 2019-03-15 06:22 | PDOC.FM ---
- Subjective Subjective: Pt resting comfortably this morning. No acute overnight events. BP elevated overnight. Lowered this AM. - Objective MAR Reviewed: Yes Vital Signs & Weight: Vital Signs (12 hours) Temp Pulse Resp BP BP Pulse Ox 03/15/19 03:57 97.6 F 70 16 113/58 L 95 03/15/19 00:00 98.5 F 71 16 173/91 H 93 L 03/14/19 20:44 166/81 H 03/14/19 20:00 97.9 F 78 16 166/81 H 92 L 03/14/19 19:44 96 03/14/19 19:05 70 18 96 Weight Admit Weight 64.274 kg Weight 109.089 kg I&O: 03/13/19 03/14/19 03/15/19 06:59 06:59 06:59 Intake Total 775 240 Output Total 0 400 1925 Balance 0 375 -1685 Result Diagrams: 03/12/19 04:50 03/12/19 04:50 Phys Exam - Physical Examination Constitutional: NAD HEENT: moist MMs, sclera anicteric Neck: supple, full ROM Respiratory: no wheezing, no rales, no rhonchi, clear to auscultation bilateral Cardiovascular: RRR, no rub Gastrointestinal: soft, non-tender, no distention, positive bowel sounds Musculoskeletal: no edema, pulses present Neurological: moves all 4 limbs jerking movements of upper extremities. Skin: no rash, normal turgor Dx/Plan (1) Stroke Code(s): I63.9 - CEREBRAL INFARCTION, UNSPECIFIED Status: Acute Qualifiers: Precerebral and cerebral artery: anterior cerebral artery Laterality of affected vessel: right (2) BPH (benign prostatic hyperplasia) Code(s): N40.0 - BENIGN PROSTATIC HYPERPLASIA WITHOUT LOWER URINRY TRACT SYMP Status: Chronic (3) CAD (coronary artery disease) Code(s): I25.10 - ATHSCL HEART DISEASE OF [place] CORONARY ARTERY W/O ANG PCTRS Status: Chronic (4) CHF (congestive heart failure) Code(s): I50.9 - HEART FAILURE, UNSPECIFIED Status: Chronic (5) COPD (chronic obstructive pulmonary disease) Status: Chronic (6) GERD (gastroesophageal reflux disease) Code(s): K21.9 - GASTRO-ESOPHAGEAL REFLUX DISEASE WITHOUT ESOPHAGITIS Status: Chronic (7) HLD (hyperlipidemia) Code(s): E78.5 - HYPERLIPIDEMIA, UNSPECIFIED Status: Chronic (8) HTN (hypertension) Code(s): I10 - ESSENTIAL (PRIMARY) HYPERTENSION Status: Chronic (9) Acute abscess of areola Code(s): N61.1 - ABSCESS OF THE BREAST AND NIPPLE Status: Acute - Plan Plan: 68 you AA male with pmh of dementia, schizophrenia, copd, DMII, HTN, HLD, and CAD presents to ER after [facility] staff were concerned for new onset slurred speech earlier this morning. 1. CVA, right KAMRAN frontal lobe. * Pt has left side facial droop, with noted slurred speech. He also is unable to move arm upon command. Strength is decreased in R. Arm. * CT Head: Neg * CTA head/neck: Scattered vascular disease, without hemodynamically significant stenosis or occlusion * Ovoid 9mm nodular density of the sub-pleura RUL of lung. Consider f/u CT * MRI: Right frontal KAMRAN infarct with R-> L subfalcine herniation. * Consulted speech/PT/OT and will follow recs * Consulted Nerurology, appreciate recs. * Ordered Carotid Dopplers: no significant stenosis of B internal carotid arteries. * Continue ASA and Plavix even though unsure what he is on plavix for at this time. Increased Statin to high dose. * Admitted to stroke unit with stroke team evaluation * Permissive HTN allowed for 24 hrs upon admission. * NIH: 4 2. Abscess of L Nipple Abscess has drain in place currently * WBC: 16 on admission > 11.7 * Currently on Bactrim DS 1 tab BID * Consulted Wound Care 3. CHF, systolic Pt possibly has poor EF per daughter * Continued home lasix dose * ECHO: EF 25-30%, E/S flow reversal. LA mildly dilated. AICD. * AICD interrogation completed 03/14, findings wnl. 4. COPD * Equivalent of pt home inhaler is Duonebs Q6hrs * Duonebs prn 5. HTN * restarted home BP meds * Allowed for permissive HTN for first 24 hours. 6. DMII * Continued lantus 15 u PM * Held home Novolog insulin. Changed to Mod SSI * Accuchecks ACHS 7. HLD * Atorvastatin 40 * FLP: Tri 148, T chol 108, LDL 51, HDL 27 8. Dementia * Held home medication at this time 9. Schizophrenia * Invega home med not on formulary * Will order to be sent in 10. BPH * Held home medication 11. GERD * Started Protonix Code Status: Full Diet: HH DVT PPx: Lovenox GI PPx: Protonix PCP: CC Dispo: Stroke Inpt, will monitor on tele, ECHO and Carotid Dopplers neg, MRI showed R KAMRAN infarct in Frontal lobe with R-> L subfalcine herniation. Neurology to see pt today and give further recommendations.
[2019-03-15] MEDS: Sulfameth/Trimethoprim DS 800-160mg TAB PO SCH (08:09)
[2019-03-15] MEDS: Carvedilol 6.25 MG TAB PO SCH (08:09)
[2019-03-15] MEDS: metFORMIN 500 MG TAB PO SCH (08:09)
[2019-03-15] MEDS: Furosemide 40 MG TAB PO SCH (08:10)
[2019-03-15] MEDS: Enoxaparin Sodium 40 MG/0.4 ML SYRINGE SC SCH (08:10)
[2019-03-15] MEDS: Aspirin 81 mg Enteric Coated Tablet PO SCH (08:10)
[2019-03-15] MEDS: Gabapentin 400 MG CAP PO SCH ×2 (08:10→13:55)
[2019-03-15] MEDS: Clopidogrel Bisulfate 75 MG TAB PO SCH (08:10)
--- NOTE | 2019-03-15 11:21 | PRG ---
DATE OF SERVICE: 03/15/2019 Date of telemedicine followup, 03/15/2019. CHIEF COMPLAINT: Acute stroke. INTERVAL HISTORY: I was asked to see this patient based on the MRI report that was recently obtained. I spoke to Dr. Phillips yesterday, and the patient was stable. At this time, MRI report states there is a small focus of restricted diffusion along the medial aspect of the right frontal lobe compatible with KAMRAN distribution infarct and associated mass effect, and minimal [id number] subfalcine herniation is noted. OBJECTIVE: VITAL SIGNS: His blood pressure 124/80, temperature 97.3, pulse 67, respiratory rate 14. GENERAL APPEARANCE: Well-built, well-nourished man. He is stable and doing well. NEUROLOGIC: He is oriented to time, place, and person, appropriate with his conversation. Cranial nerves 2 through 12; normal extraocular movements. No facial asymmetry noted. Tongue midline. Motor exam; bulk normal. Tone normal. Strength 5/5 throughout. Involuntary movements; he has mild tardive dyskinesia around his mouth. IMPRESSION: The patient with previous history of schizophrenia and also prior medical issues including hypertension. He came in with some dysarthria. His MRI was finally completed yesterday, and the reading is as noted above. At this time, the patient is clinically very stable. He looks better than the scan. He is medically stable. I do think his subfalcine herniation is secondary to local edema, and it should eventually resolve. RECOMMENDATIONS: Continue with plans for aspirin with statin. We will see the patient as needed. Job ID: [id number]
[2019-03-15 12:03] VITALS: BP 124/87; TEMP 97.6
--- NOTE | 2019-03-18 11:02 | DIS ---
DATE OF ADMISSION: 03/11/2019 DATE OF DISCHARGE: 03/15/2019 RESIDENT: Lisbeth Pineda, DISCHARGE ATTENDING: Leandro Salas MD CONSULTS: Neurology, Dr. Griffin; Case Management; PT eval/treat; Spiritual Care ; Speech eval/teat; Stroke Team; Wound Care eval/treat. PROCEDURES: 1. Brain CT showed no hemorrhage or mass effect. 2. CT [place] of [place] angio with contrast, which showed scattered vascular disease without hemodynamically-significant stenosis or occlusion. Incidental note of an ovoid 9 mm nodular density right upper lung, nonspecific finding consider followup CT thorax for further assessment as an outpatient. 3. Echocardiogram, EF of 25% to 30% with EA flow reversal noted suggestive of diastolic dysfunction. 4. Brain MRI, which showed a small focus of restricted diffusion along the medial aspect of the right frontal lobe, compatible with KAMRAN distribution infarct, associated mass effect and minimal right to left subfalcine herniation, confluent T2 and FLAIR white matter intensities due to chronic small-vessel ischemic changes and partial right mastoid air cell opacification. DIAGNOSES: 1. Cerebrovascular accident, right anterior cerebral artery, frontal lobe. 2. Abscess of left nipple. 3. Congestive heart failure with reduced ejection fraction. 4. Chronic obstructive pulmonary disease. 5. Hypertension. 6. Diabetes mellitus type 2. 7. Hyperlipidemia. 8. Dementia. 9. Schizophrenia. 10. benign prostatic hyperplasia. 11. Gastroesophageal reflux disease. DISCHARGE MEDICATIONS: 1. Acetaminophen 1 g p.o. q.4 hours p.r.n. 2. Carvedilol 12.5 mg p.o. b.i.d. 3. Plavix 75 mg p.o. daily. 4. Donepezil 10 mg p.o. at bedtime. 5. Finasteride 5 mg p.o. daily. 6. Fluticasone furoate 2 inhales each naris daily. 7. Lasix 40 mg p.o. b.i.d. 8. Gabapentin 800 mg p.o. t.i.d. 9. acetaminophen p.o. q.4 hours p.r.n. 10. Lantus 15 units subcu q.p.m. 11. Insulin NPH/regular insulin or Novolin 70/30 of 2 units subcu p.r.n. 12. DuoNeb 1 unit inhale q.6 hours p.r.n. 13. Claritin 10 mg p.o. daily. 14. Metformin 1000 mg p.o. b.i.d. 15. Paliperidone or Invega 1.5 mg p.o. daily. 16. Protonix 20 mg p.o. daily. 17. Artificial Tears 1 drop each eye p.r.n. 18. Bactrim DS 1 tablet p.o. b.i.d., stop date 03/15, the day of discharge, the patient will get one more pill this evening. 19. Anoro Ellipta 62.5 mcg/25 mcg one inhale daily. 20. Aspirin 81 mg p.o. daily. 21. Atorvastatin 40 mg p.o. at bedtime. No discontinued medications. HISTORY OF PRESENT ILLNESS AND HOSPITAL COURSE: Mr. Reeves is a 68-year-old male with a history of heart failure with reduced ejection fraction, diabetes mellitus type 2, dementia, schizophrenia, hypertension, and COPD, came in from residential with slurred speech. The patient was started on aspirin, Plavix, and high-dose statin. Received an MRI after a couple of days of admission because they were unsure whether or not his AICD was compatible with MRI machine. His AICD was interrogated and deemed appropriate to have an MRI taken by the drug textiles sales representative. The MRI of the head showed an KAMRAN infarct in the right frontal lobe and subfalcine herniation in the right to left distribution. Dr. Griffin, Neurology via tele doctor was consulted and saw the patient while in the hospital. She states that the subfalcine herniation is likely secondary from edema from the KAMRAN, right frontal infarct and will alleviate over time and not cause the patient significant deficit. She has done a thorough neuro exam as well as the Family Medicine team and the patient is stable for discharge. It is recommended that he continue aspirin, Plavix and high-dose statin therapy amongst his other current medication regimen. DISPOSITION: The patient is [facility] DISCHARGE INSTRUCTIONS: 1. Location: longterm facility. 2. Diet: Heart healthy and consistent carb. 3. Activity: As tolerated. 4. Followup: Follow up with primary care in 1 week's time. Job ID: [id number] [facility]
== END 2019-03-15 15:12 | DRG 64 ==
LOC: ERS 14:56 → 2SE 16:21
PROVIDERS: ADMIT Family Medicine; ATTEND Family Medicine
DX: I63.9 Cerebral infarction, unspecified (principal); G93.6 Cerebral edema; I50.21 Acute systolic (congestive) heart failure; I11.0 Hypertensive heart disease with heart failure; R47.81 Slurred speech; R29.810 Facial weakness; R40.2362 Coma scale, best motor response, obeys commands, at arrival to emergency department; R40.2142 Coma scale, eyes open, spontaneous, at arrival to emergency department; R40.2252 Coma scale, best verbal response, oriented, at arrival to emergency department; R29.703 NIHSS score 3; J44.9 Chronic obstructive pulmonary disease, unspecified; F20.9 Schizophrenia, unspecified; F03.90 Unspecified dementia, unspecified severity, without behavioral disturbance, psychotic disturbance, mood disturbance, and anxiety; E11.9 Type 2 diabetes mellitus without complications; I25.10 Atherosclerotic heart disease of native coronary artery without angina pectoris; F17.200 Nicotine dependence, unspecified, uncomplicated; K21.9 Gastro-esophageal reflux disease without esophagitis; N40.0 Benign prostatic hyperplasia without lower urinary tract symptoms; G47.33 Obstructive sleep apnea (adult) (pediatric); N61.1 Abscess of the breast and nipple; Z95.810 Presence of automatic (implantable) cardiac defibrillator
CPT/HCPCS: 36415; 36416; 70450; 70496; 70498; 70551; 80053; 80061; 82550; 84484; 85025; 85610; 85730; 93005; 93306; 93880; 94640; 94760; 96360; 96361; C9113; J1650; J1815; J2060; J7620